=== PATIENT | male | born 1995 ===

== ENCOUNTER 2021-08-12 11:53 | Day surgery (SDC) | payer OTHER ==
[2021-08-12] MEDS ORDERED: PERCOCET 5-3251 EACH PO (16:11)
[2021-08-12] MEDS ORDERED: COLACE100 MG PO (16:11)
== END 2021-08-12 20:00 | disposition home or self-care (01) ==
LOC: CIR.AMB 11:53
PROVIDERS: ATTEND Surgery
DX: K60.0 Acute anal fissure (principal); K62.4 Stenosis of anus and rectum; Z20.822 Contact with and (suspected) exposure to COVID-19